=== PATIENT | female | born 1975 | race Caucasian/White ===

== ENCOUNTER → 2019-05-03 | Outpatient (CLI) | payer BC, OTHER ==
[~2019-05-03] VITALS: Ht 175.3 cm; Wt 81.7 kg
[2019-05-03 09:44] VITALS: BP 115/79
== END | disposition home or self-care (01) ==
LOC: TBA 08:33 → OR 08:33 → TBA 08:34 → OR 08:46 → PAC 09:10 → OR 09:58 → EDSTATUS 10:08 → OR 11:00
DX: B07.0 Plantar wart (principal); Z53.8 Procedure and treatment not carried out for other reasons; F17.210 Nicotine dependence, cigarettes, uncomplicated; Z98.890 Other specified postprocedural states; Z79.899 Other long term (current) drug therapy
CPT/HCPCS: 50010